=== PATIENT | female | born 1985 | race Caucasian/White ===

== ENCOUNTER → 2024-07-19 13:57 | Outpatient (REF) | payer BC, SELFPAY | LOC: PNTC 13:57 | PROVIDERS: ATTENDING PHYSICIAN Obstetrics & Gynecology | DX: Z36.0 Encounter for antenatal screening for chromosomal anomalies (principal); Z36.82 Encounter for antenatal screening for nuchal translucency | CPT/HCPCS: 76801; 76813 ==

== ENCOUNTER → 2024-08-10 13:29 | Outpatient (REF) | payer BC, SELFPAY | LOC: PNTC 13:29 | PROVIDERS: ATTENDING PHYSICIAN Student in an Organized Health Care Education/Training Program | DX: O35.8XX0 Maternal care for other (suspected) fetal abnormality and damage, not applicable or unspecified (principal); O09.522 Supervision of elderly multigravida, second trimester | CPT/HCPCS: 76805 ==

== ENCOUNTER → 2024-09-13 15:45 | Outpatient (REF) | payer BC, SELFPAY | LOC: PNTC 15:45 | PROVIDERS: ATTENDING PHYSICIAN Obstetrics & Gynecology | DX: O09.522 Supervision of elderly multigravida, second trimester (principal); O35.5XX0 Maternal care for (suspected) damage to fetus by drugs, not applicable or unspecified | CPT/HCPCS: 76811; 76817 ==

== ENCOUNTER → 2024-10-26 15:55 | Outpatient (REF) | payer BC, SELFPAY | LOC: PNTC 15:55 | PROVIDERS: ATTENDING PHYSICIAN Obstetrics & Gynecology | DX: O09.529 Supervision of elderly multigravida, unspecified trimester (principal); O99.320 Drug use complicating pregnancy, unspecified trimester | CPT/HCPCS: 76816 ==

== ENCOUNTER → 2024-11-21 15:51 | Outpatient (REF) | payer BC, SELFPAY | LOC: PNTC 15:51 | PROVIDERS: ATTENDING PHYSICIAN Obstetrics & Gynecology | DX: O09.529 Supervision of elderly multigravida, unspecified trimester (principal); O35.5XX0 Maternal care for (suspected) damage to fetus by drugs, not applicable or unspecified | CPT/HCPCS: 76816 ==

== ENCOUNTER → 2024-12-05 13:20 | Outpatient (REF) | payer BC, SELFPAY | LOC: PNTC 13:20 | PROVIDERS: ATTENDING PHYSICIAN Obstetrics & Gynecology | DX: O36.8190 Decreased fetal movements, unspecified trimester, not applicable or unspecified (principal) | CPT/HCPCS: 59025; 76818 ==

== ENCOUNTER → 2024-12-19 16:04 | Outpatient (REF) | payer BC, SELFPAY | LOC: PNTC 16:04 | PROVIDERS: ATTENDING PHYSICIAN Student in an Organized Health Care Education/Training Program | DX: O43.199 Other malformation of placenta, unspecified trimester (principal); O35.5XX0 Maternal care for (suspected) damage to fetus by drugs, not applicable or unspecified | CPT/HCPCS: 76816 ==

== ENCOUNTER 2025-01-04 16:16 | Inpatient (IN) | payer BC, SELFPAY ==
[2025-01-04 16:27] VITALS: BP 159/100; BMI 32.3
[2025-01-04] MEDS: TYLENOL 1000 MG PO (17:14)
[2025-01-04 17:17] LABS: Hematocrit 35.3 % (37.0-47.0); Hemoglobin 12.2 g/dL (12.0-16.0); Mean Corp Hgb Conc. 34.6 g/dL (33.0-37.0); Mean Corpuscular Volume 88.7 fL (81.0-99.0); Nucleated Red Blood Cells % 0 %; Platelet Count 147 10^3/uL (130-400); Red Cell Dist. Width 12.4 % (11.5-14.5)
[2025-01-04 17:42] LABS: ALT (SGPT) 17 U/L (0-35); AST (SGOT) 22 U/L (14-36); Albumin 3.2 g/dl (3.5-5.0); Alkaline Phosphatase 117 U/L (38-126); Blood Urea Nitrogen 6 mg/dl (7-17); Calcium 9.0 mg/dl (8.4-10.2); Carbon Dioxide 22 mmol/L (22-30); Chloride 109 mmol/L (98-107); Estimated Creatinine Clearance > 125 ml/min; Glucose 86 mg/dl (70-99); Potassium 4.0 mmol/L (3.5-5.1); Sodium 135 mmol/L (135-145); Total Protein 5.8 g/dl (6.3-8.2); eGFR > 60.00
[2025-01-04] MEDS: CYTOTEC 25 MICROGRAM VAG (20:40)
[2025-01-04] MEDS: SEROQUEL 300 MG PO (20:42)
[2025-01-04] MEDS: KLONOPIN 1 MG PO (20:42)
[2025-01-04 21:40] LABS: Glucose - Point of Care 121 mg/dl (70-99)
[2025-01-04] MEDS: MELATONIN PO (22:00)
[2025-01-04] MEDS: CARAFATE 1 GRAM PO (22:05)
[2025-01-04 22:45] LABS: Glucose - Point of Care 91 mg/dl (70-99)
[2025-01-05] MEDS: LR 1000 IV ×3 (00:28→22:57)
[2025-01-05] MEDS: CYTOTEC 50 MICROGRAM PO ×2 (03:09→07:36)
[2025-01-05 03:11] LABS: Glucose - Point of Care 95 mg/dl (70-99)
[2025-01-05 07:27] LABS: Glucose - Point of Care 92 mg/dl (70-99)
[2025-01-05] MEDS: CARAFATE 1 GRAM PO ×3 (08:18→17:13)
[2025-01-05] MEDS: PRENATAL PLUS PO (10:22)
[2025-01-05 11:13] LABS: Glucose - Point of Care 98 mg/dl (70-99)
[2025-01-05] MEDS: CYTOTEC PO ×4 (11:15→22:49)
[2025-01-05] MEDS: PITOCIN 30 UNITS/NSS 500 ML IV (11:22)
[2025-01-05] MEDS: VANCOCIN 535 MG IV (11:48)
[2025-01-05 15:19] LABS: Glucose - Point of Care 82 mg/dl (70-99)
[2025-01-05] MEDS: ANCEF 10 IV (15:37)
[2025-01-05] MEDS: BENADRYL 50 MG IV (16:14)
[2025-01-05 17:51] LABS: Platelet Count 128 10^3/uL (130-400)
[2025-01-05] MEDS: SUBLIMAZE 100 MCG EPIDURAL ×2 (18:07→18:23)
[2025-01-05] MEDS: FENTANYL/BUPIVACAINE 100 EPIDURAL (18:24)
[2025-01-05 19:11] LABS: Glucose - Point of Care 109 mg/dl (70-99)
[2025-01-05] MEDS: BENADRYL 50 MG PO (19:44)
[2025-01-05] MEDS: KLONOPIN 1 MG PO (19:45)
[2025-01-05] MEDS: CARAFATE PO ×2 (20:32→22:50)
[2025-01-05] MEDS: ZOFRAN 4 MG IV (21:10)
[2025-01-05] MEDS: SEROQUEL 300 MG PO (21:19)
[2025-01-05] MEDS: MELATONIN 12 MG PO (21:19)
[2025-01-05] MEDS: ANCEF 5 IV (22:56)
[2025-01-05 23:13] LABS: Glucose - Point of Care 93 mg/dl (70-99)
[2025-01-06] MEDS: FENTANYL/BUPIVACAINE 100 EPIDURAL (01:42)
[2025-01-06 03:17] LABS: Glucose - Point of Care 90 mg/dl (70-99)
[2025-01-06] MEDS: BENADRYL 50 MG IV (03:40)
[2025-01-06] MEDS: ANCEF 5 IV (06:49)
[2025-01-06] MEDS: CARAFATE 1 GRAM PO (08:18)
[2025-01-06] MEDS: PRENATAL PLUS 1 TABLET PO (08:18)
[2025-01-06] MEDS: TRANEXAMIC ACID 100 IV (10:04)
[2025-01-06] MEDS: ATARAX 25 MG PO (10:29)
[2025-01-06] MEDS: CARAFATE PO ×3 (11:41→21:04)
[2025-01-06] MEDS: MOTRIN 600 MG PO ×2 (12:26→19:57)
[2025-01-06] MEDS: KLONOPIN 1 MG PO (19:57)
[2025-01-06] MEDS: COLACE 100 MG PO (19:57)
[2025-01-06] MEDS: SEROQUEL 300 MG PO (21:04)
[2025-01-06] MEDS: MELATONIN 12 MG PO (21:04)
[2025-01-07] MEDS: MOTRIN 600 MG PO ×3 (02:11→17:49)
[2025-01-07 06:38] LABS: Hematocrit 27.6 % (37.0-47.0); Hemoglobin 9.6 g/dL (12.0-16.0)
[2025-01-07] MEDS: PRENATAL PLUS 1 TABLET PO (09:39)
[2025-01-07] MEDS: COLACE 100 MG PO ×2 (09:39→19:53)
[2025-01-07] MEDS: CARAFATE PO ×4 (09:39→22:00)
[2025-01-07] MEDS: FEOSOL 325 MG PO (09:39)
[2025-01-07] MEDS: TYLENOL 650 MG PO ×2 (09:39→19:54)
[2025-01-07] MEDS: SENOKOT 17.2 MG PO (19:54)
[2025-01-07] MEDS: KLONOPIN 1 MG PO (19:55)
[2025-01-07] MEDS: SEROQUEL 300 MG PO (21:17)
[2025-01-07] MEDS: MELATONIN 12 MG PO (21:17)
[2025-01-08] MEDS: TYLENOL 650 MG PO ×2 (01:30→09:23)
[2025-01-08] MEDS: MOTRIN 600 MG PO ×2 (01:30→09:23)
[2025-01-08] MEDS: MIRALAX 17 GRAMS PO (09:23)
[2025-01-08] MEDS: PRENATAL PLUS 1 TABLET PO (09:23)
[2025-01-08] MEDS: FEOSOL 325 MG PO (09:23)
[2025-01-08] MEDS: CARAFATE PO (09:25)
[2025-01-08] MEDS: COLACE 100 MG PO (09:25)
[2025-01-08] MEDS: ADACEL 0.5 ML IM (12:12)
[2025-01-10 15:38] LABS: Syphilis/T. pallidum Ab Reflex Negative (Negative)
== END 2025-01-08 12:55 | disposition home or self-care (01) | DRG 807 ==
LOC: LDRP 16:16
PROVIDERS: Obstetrics & Gynecology; ADMITTING PHYSICIAN Obstetrics & Gynecology; FAMILY PHYSICIAN Nurse Practitioner Family
PROC: 3E0P7VZ Introduction of Hormone into Female Reproductive, Via Natural or Artificial Opening (ICD-10-PCS; 2025-01-04)
PROC: 3E033VJ Introduction of Other Hormone into Peripheral Vein, Percutaneous Approach (ICD-10-PCS; 2025-01-05)
PROC: 4A1HXCZ Monitoring of Products of Conception, Cardiac Rate, External Approach (ICD-10-PCS; 2025-01-05)
PROC: 0U7C7DJ Dilation of Cervix with Intraluminal Device, Temporary, Via Natural or Artificial Opening (ICD-10-PCS; 2025-01-05)
PROC: 10E0XZZ Delivery of Products of Conception, External Approach (ICD-10-PCS; 2025-01-06)
PROC: 10907ZC Drainage of Amniotic Fluid, Therapeutic from Products of Conception, Via Natural or Artificial Opening (ICD-10-PCS; 2025-01-06)
PROC: 0KQM0ZZ Repair Perineum Muscle, Open Approach (ICD-10-PCS; 2025-01-06)
DX: O13.4 Gestational [pregnancy-induced] hypertension without significant proteinuria, complicating childbirth (principal); Z37.0 Single live birth; O99.824 Streptococcus B carrier state complicating childbirth; Z3A.37 37 weeks gestation of pregnancy; O99.344 Other mental disorders complicating childbirth; F41.9 Anxiety disorder, unspecified; F32.A Depression, unspecified; O70.1 Second degree perineal laceration during delivery; O76 Abnormality in fetal heart rate and rhythm complicating labor and delivery; O90.81 Anemia of the puerperium; Z79.899 Other long term (current) drug therapy; Z86.14 Personal history of Methicillin resistant Staphylococcus aureus infection; Z88.0 Allergy status to penicillin
CPT/HCPCS: 80053; 82570; 82962; 84156; 85014; 85018; 85025; 85049; 86780; 86850; 86900; 86901; 87070; 88307; 90715